=== PATIENT | male | born 1970 | race Caucasian/White ===

== ENCOUNTER 2016-07-22 09:59 | Emergency (ER) ==
--- NOTE | 2016-07-22 10:20 | ED EKG INTERP ---
EKG Interpretation - EKG Time of EKG reading by physician:: 10:11 EKG Read and Signed by:: Neto Lyons EKG Interpretation (*Must complete 3 of following elements*): Normal Rate: 81 Rhythm: NSR [place]: normal QRS: normal [place] Interval: normal ST Wave: normal Attestation - Scribe Verification/Attestation Scribe:: Tramaine Chapman Acting as Scribe for:: Neto Lyons Scribe documention review:: This chart was documented by a scribe and accurately reflects the service the provider performed and the decisions made by the provider. Physician Attestation - Physician Attestation I, the provider, attest to the following statement:: Neto Lyons Physician documentation Attestation:: This documentation recorded by the scribe accurately reflects the service I personally performed and the decisions made by me.
[2016-07-22] MEDS ORDERED: ZOFRAN ODT PO ONE (10:21)
[2016-07-22] MEDS ORDERED: IMITREX SUBQ ONE ×2 (10:22→11:52)
--- NOTE | 2016-07-22 10:24 | EKG Report ---
Test Performed on : 07/22/2016 10:11:29 AM Test Reason : JAW PAIN Blood Pressure : / mmHG Vent. Rate : 081 BPM Atrial Rate : 081 BPM P-R Int : 126 ms QRS Dur : 094 ms QT Int : 368 ms P-R-T Axes : 013 -01 018 degrees QTc Int : 427 ms Normal sinus rhythm. Normal ECG When compared with ECG of 04-MAR-2016 10:38, No significant change was found Unconfirmed Result
--- NOTE | 2016-07-22 10:26 | PROVIDER DOCUMENTATION ---
HPI-Headache - General Source: patient - History of Present Illness-Headache Headache Location: reports: occipital (left) Quality of Pain: reports: aching, throbbing Severity: reports: mild Onset/Duration: reports: gradual, last night Timing: reports: still present, constant Headache Context: reports: nothing Headache History: reports: occasional headaches, history of migraines Any recent trauma/injury?: reports: none Headache severity at the maximum: moderate Headache Exacerbated by:: denies: light Modifying Factors: improves with: other Associated Symptoms: reports: headache, neck/back pain, nausea, vomiting. denies: decreased ability to walk or stand, dizziness, chest pain, fever/chills , loss of consciousness, paresthesia, seizures, slurred speech, vision changes, weakness Similar Symptoms Previously?: Yes Recently seen or treated by another doctor?: No <Tramaine Chapman - Last Filed: 07/22/16 11:52> <Jarocho Chan - Last Filed: 07/22/16 11:58> - General Chief Complaint: Headache Stated Complaint: VALERIO,NAUSEA,JAW PAIN Time Seen by Provider: 07/22/16 10:12 Allergies/Adverse Reactions: Patient Allergies Allergy/AdvReac Type Severity Reaction Status Date / Time naproxen Allergy ANAPHYLAXIS Verified 07/22/16 10:06 Home Medications: Home Medication List Medication Instructions Recorded Confirmed Last Taken Type Ondansetron [Zofran Odt] 4 mg PO 4XDAY PRN PRN #20 07/22/16 Unknown Rx tab.rapdis Sumatriptan [Imitrex] 50 mg PO PRN PRN #8 tablet 07/22/16 Unknown Rx - History of Present Illness-Headache Nature of Presenting Problem: Patient is a 45 y/o M that presents to the ER with headache and n/v x 24 hours. patient radiates to left jaw. reports history of migraines but hasn't had one in years. Denies fever/chills. Patient has photophobia. (Tramaine Chapman) Review of Systems - Adult - REVIEW OF SYSTEMS - ADULT Constitutional: denies: chills, fever Eyes: denies: decreased vision, blurred vision, double vision, eye pain Ears, Nose, Mouth & Throat: denies: ear discharge, ear pain, sinus problem, throat pain, throat swelling Cardiovascular: denies: chest pain, palpitations, syncope Respiratory: denies: cough, shortness of breath, wheezing Gastrointestinal: reports: nausea, vomiting. denies: abdominal pain, diarrhea Genitourinary: reports: no symptoms reported Musculoskeletal: reports: neck pain. denies: back pain, joint pain Integumentary: reports: no symptoms reported Neurological: reports: headache/migraines. denies: dizziness/vertigo, syncope Psychiatric: reports: no symptoms reported Endocrine: reports: no symptoms reported Hematologic/Lymphatic: reports: no symptoms reported Allergic/Immunologic: reports: no symptoms reported All Other Systems: Reviewed and Negative <Tramaine Chapman - Last Filed: 07/22/16 11:52> Past History - Adult - PAST MEDICAL HISTORY-ADULT Review of Records: reports: Old Records Reviewed, Nursing Assessment Review, Medications Reviewed Cardiovascular: reports: CHF (hx ), HTN. denies: TN (possible TN several years ago) Gastrointestinal: reports: GERD Neurological: reports: headaches/migraines Endocrine/Immune: reports: Diabetes - PRIOR SURGERIES/PROCEDURES Surgical/Procedure History: reports: appendectomy, orthopedic (extremity) (left knee), other (cyst removal) - IMMUNIZATION STATUS Childhood Immunizations: NUTD Flu Vaccine: NUTD - FAMILY HISTORY Family History: CAD over 55 yo - SOCIAL HISTORY Smoking: quit greater than 1 year, cigarettes Alcohol Use Frequency: occasionally Living Situation: family <Tramaine Chapman - Last Filed: 07/22/16 11:52> Physical Exam- Neurological - Physical Exam-Neuro Exam Limited by: obesity Initial Vital Signs Reviewed: Yes General Appearance: alert, no apparent distress, obese Eye Exam: bilateral eye: normal inspection, PERRL HENMT: normocephalic/atraumatic, moist mucous membranes, normal ENT inspection, TMs normal, pharynx normal Head Injury: no evidence of injury. negative: Jasso's Sign, contusions, ecchymosis Neck: non-tender, full range of motion, supple, normal inspection Respiratory: lungs clear, normal breath sounds, no respiratory distress, no accessory muscle use Cardiovascular: regular rate, rhythm, no edema, no murmur Abdominal Exam: normal bowel sounds, non tender, soft, no organomegaly, no pulsatile mass Extremity: normal range of motion, normal inspection, no pedal edema, normal capillary refill band master Exam: normal hearing, normal speech, PERRL Motor/Sensory: no motor deficit, no sensory deficit Neurologic: band master II-XII nml as tested, no motor/sensory deficits Integumentary: normal color, warm/dry Psych/Mental Status: normal mood/affect, normal thought content, normal thought process, oriented x 3 - Glascow Coma Scale Best Eye Response: (4) open spontaneously Best Verbal Response: (5) oriented Best Motor Response: (6) obeys commands Total Glascow Score: 15 <Tramaine Chapman - Last Filed: 07/22/16 11:52> Progress - REASSESSMENT Reassessment #1 Time Reassessed: 11:52 Status: improving Reassessment Comment: headache is relieving - EKG 1 Rhythm: NSR 2 Time of EKG reading by physician:: 11:26 EKG Read and Signed by:: Jarocho Chan EKG Interpretation (*Must complete 3 of following elements*): Normal Rate: 79 Rhythm: NSR [place]: normal QRS: normal [place] Interval: normal ST Wave: normal <Tramaine Chapman - Last Filed: 07/22/16 11:52> <Jarocho Chan - Last Filed: 07/22/16 11:58> - PLAN OF CARE/RESULTS Progress/Plan/Lab Results: plan of care-ekg, meds, labs Vital Signs Temp Pulse Resp BP Pulse Ox 07/22/16 11:08 74 20 158/106 99 07/22/16 11:04 73 99 07/22/16 10:04 97.5 F L 86 20 171/97 100 naproxen Allergy (Verified 07/22/16 10:06) ANAPHYLAXIS No Home Medications 07/22/16 Laboratory 07/22/16 07/22/16 10:54 10:54 WBC 6.60 RBC 5.26 Hgb 14.4 Hct 44.3 MCV 84.2 MCH 27.4 MCHC 32.5 L RDW Std Deviation 13.9 Plt Count 163 MPV 12.2 H Immature Gran % (Auto) 0.3 Neut % (Auto) 71.1 Lymph % (Auto) 17.1 L [place] % (Auto) 5.5 Eos % (Auto) 5.5 Baso % (Auto) 0.5 Immature Gran # (Auto) 0.02 Neut # (Auto) 4.70 Lymph # (Auto) 1.13 L [place] # (Auto) 0.36 Eos # (Auto) 0.36 Baso # (Auto) 0.03 Sodium 135 L Potassium 4.3 Chloride 98 Carbon Dioxide 26 Anion Gap 11 BUN 15 Creatinine 0.6 L Estimated GFR/1.73 m2 > 60 BUN/Creatinine Ratio 25 Glucose 161 H Calculated Osmolality 274 Calcium 8.8 Total Bilirubin 0.23 AST 13 ALT 18 Alkaline Phosphatase 59 Total Protein 6.7 Albumin 3.5 Globulin 3.2 Albumin/Globulin Ratio 1.1 Orders Category Date Time Status BNP [PRO B-NATRIURETIC PEPTIDE] Stat Lab 07/22/16 10:54 Received CBC WITH ELECTRONIC DIFF [HEME] Stat Lab 07/22/16 10:54 Completed CMP [COMPREHENSIVE METABOLIC PANEL] [CHEM] Stat Lab 07/22/16 10:54 Completed Ondansetron Odt [Zofran Odt] Med 07/22/16 10:21 Discontinued 8 mg PO NOW ONE Sumatriptan [Imitrex] Med 07/22/16 10:22 Discontinued 6 mg SUBQ NOW ONE Sumatriptan [Imitrex] Med 07/22/16 11:52 Once 6 mg SUBQ NOW ONE EKG [EKG] Stat Ther 07/22/16 10:08 Draft EKG [EKG] Stat Ther 07/22/16 11:26 Ordered pt will be d/c home f/u with pcp, rx given pt was clinically and neurologically stable. (Tramaine Chapman) Departure - Departure Time of Disposition Order: 11:53 Certified Medical Emergency: Emergent <Tramaine Chapman - Last Filed: 07/22/16 11:52> - Departure Certified Medical Emergency: Emergent <Jarocho Chan - Last Filed: 07/22/16 11:58> - Departure DIAGNOSIS: Migraine Qualifiers: Migraine type: without aura Status migrainosus presence: without status migrainosus Intractability: not intractable Qualified Code(s): G43.009 - Migraine without aura, not intractable, without status migrainosus Disposition: HOME 01 Condition: Stable Additional Instructions: ED Follow Up Instructions: You have been treated by a care provider in the Emergency Department. These instructions are being provided to you so you can have an understanding of how to care for yourself upon discharge. Upon discharge from the Emergency Department, you are responsible for making arrangements for follow-up care by a physician of your choice. Take all prescribed medications as directed. Return to the Emergency Department immediately for any new or worsening symptoms. You may call the Physician Referral phone number at [phone] to obtain a list of Physicians who are taking new patients. Prescriptions: Sumatriptan [Imitrex] 50 mg PO PRN PRN #8 tablet PRN Reason: Headache Ondansetron [Zofran Odt] 4 mg PO 4XDAY PRN PRN #20 tab.rapdis PRN Reason: Vomiting Referrals: Trevin Butler MD [Primary Care Provider] - Call for Appoint. 1-2days Instructions: Migraine Headache Attestation - Scribe Verification/Attestation Scribe:: Tramaine Chapman Acting as Scribe for:: Jarocho Chan Scribe documention review:: This chart was documented by a scribe and accurately reflects the service the provider performed and the decisions made by the provider. <Tramaine Chapman - Last Filed: 07/22/16 11:52> Physician Attestation - Physician Attestation I, the provider, attest to the following statement:: Jarocho Chan Physician documentation Attestation:: This documentation recorded by the scribe accurately reflects the service I personally performed and the decisions made by me. <Tramaine Chapman - Last Filed: 07/22/16 11:52>
[2016-07-22 11:00] LABS: MANUAL DIFF NEEDED? NO
[2016-07-22 11:06] LABS: BASO% 0.5 % (0.0-0.8); EOS# 0.36 X1000 (0.0-0.7); EOS% 5.5 % (0.0-10.0); HEMATOCRIT 44.3 % (42.0-52.0); HEMOGLOBIN 14.4 g/dL (14.0-18.0); IMM GRAN# 0.02 X1000 (0.0-0.04); IMM GRAN% 0.3 % (0.0-0.5); LYMPH# 1.13 X1000 (1.2-3.4); LYMPH% 17.1 % (20.5-51.1); MCH 27.4 PG (27-31); MCHC 32.5 g/dL (33-37); MCV 84.2 FL (81-99); MONO# 0.36 X1000 (0.11-0.59); MONO% 5.5 % (1.7-9.3); MPV 12.2 FL (7.4-10.4); NEUT% 71.1 % (42.2-75.2); PLT 163 X1000 (130-400); RBC 5.26 XMIL (4.7-6.1)
[2016-07-22 11:24] LABS: AGAP 11; ALBUMIN 3.5 g/dL (3.5-5.0); ALKALINE PHOSPHATASE 59 U/L (32-122); BUN 15 mg/dL (8-22); CALCIUM 8.8 mg/dL (8.8-10.2); CHLORIDE 98 mmol/L (98-107); COSMO 274; GOT 13 U/L (10-34); GPT 18 U/L (10-44); POTASSIUM 4.3 mmol/L (3.5-5.1); SODIUM 135 mmol/L (136-145); TCO2 26 mmol/L (25-35); TOTAL BILIRUBIN 0.23 mg/dL (0.20-1.00); TOTAL PROTEIN 6.7 g/dL (6.3-8.3)
[2016-07-22 12:20] VITALS: BP 142/84
--- NOTE | 2016-07-22 15:02 | EKG Report ---
Test Performed on : 07/22/2016 11:26:01 AM Test Reason : CHEST PAIN Blood Pressure : / mmHG Vent. Rate : 079 BPM Atrial Rate : 079 BPM P-R Int : 120 ms QRS Dur : 096 ms QT Int : 364 ms P-R-T Axes : 028 006 016 degrees QTc Int : 417 ms Normal sinus rhythm. Normal ECG When compared with ECG of 22-JUL-2016 10:11, (Unconfirmed) No significant change was found Unconfirmed Result
== END 2016-07-22 12:32 | disposition home or self-care (01) ==
LOC: ED 09:59
DX: G43.009 Migraine without aura, not intractable, without status migrainosus (principal); R51 Headache; R11.2 Nausea with vomiting, unspecified; R68.84 Jaw pain; M54.2 Cervicalgia; I10 Essential (primary) hypertension; E11.9 Type 2 diabetes mellitus without complications; E66.9 Obesity, unspecified; Z87.891 Personal history of nicotine dependence; Z82.49 Family history of ischemic heart disease and other diseases of the circulatory system
CPT/HCPCS: 80053; 83880; 85025; 93005; J3030; S0181